=== PATIENT | female | born 1980 | race Caucasian/White ===

== ENCOUNTER → 2020-02-13 | Outpatient (CLI) | payer OTHER | END | disposition home or self-care (01) | LOC: RAD 10:43 | PROVIDERS: ATTEND Nurse Practitioner Family | DX: R10.10 Upper abdominal pain, unspecified (principal) | CPT/HCPCS: 76700 ==

== ENCOUNTER → 2020-02-18 | Outpatient (CLI) | payer OTHER ==
[~2020-02-18] MED LIST: OMNIPAQUE 350 MG/ML, 100ML BOTTLE ONE
== END | disposition home or self-care (01) ==
LOC: CFH 12:02
PROVIDERS: ATTEND Nurse Practitioner Family
DX: K42.9 Umbilical hernia without obstruction or gangrene (principal); K43.9 Ventral hernia without obstruction or gangrene; J98.11 Atelectasis
CPT/HCPCS: 74160; Q9967

== ENCOUNTER → 2020-04-07 | Outpatient (CLI) | payer OTHER | END | disposition home or self-care (01) | LOC: STAR 08:09 | PROVIDERS: ATTEND Surgery | DX: Z20.828 Contact with and (suspected) exposure to other viral communicable diseases (principal) | CPT/HCPCS: 87635 ==

== ENCOUNTER 2020-04-13 06:27 | Day surgery (SDC) | payer OTHER ==
[~2020-04-13] VITALS: Ht 154.9 cm; Wt 83.1 kg
[2020-04-13] MEDS ORDERED: EPINEPHRINE 1 MG/ML, 1ML ONE (06:36)
[2020-04-13] MEDS ORDERED: BUPIVACAINE/PF 0.5% ONE (06:36)
[2020-04-13 07:13] VITALS: BP 119/79
[2020-04-13 07:27] LABS: HCG UR SG 1.019 (1.003-1.030)
[2020-04-13] MEDS ORDERED: CHLORHEXIDINE 15 ML UDC MM ONE (07:30)
[2020-04-13] MEDS ORDERED: LACTATED RINGERS 1,000 ML IV SCH (07:30)
[2020-04-13] MEDS ORDERED: HYDR-3240 PO (08:40)
[2020-04-13] MEDS ORDERED: FENTANYL PF 250 MCG/5ML ONE (08:41)
[2020-04-13] MEDS ORDERED: MIDAZOLAM 1 MG/ML, 2ML ONE (08:41)
[2020-04-13] MEDS ORDERED: NEOSTIGMINE 1 MG/ML, 10ML ONE (08:49)
[2020-04-13] MEDS ORDERED: LIDOCAINE 4%, 4 ML SYR/CANN TP ONE (08:49)
[2020-04-13] MEDS ORDERED: GLYCOPYRROLATE 0.2MG/1ML, 5ML ONE (08:49)
[2020-04-13] MEDS ORDERED: DEXAMETHASONE 4 MG/ML, 1ML ONE (08:49)
[2020-04-13] MEDS ORDERED: ROCURONIUM 10MG/ML,5ML ONE (08:49)
[2020-04-13] MEDS ORDERED: ONDANSETRON 2MG/ML, 2ML ONE (08:49)
[2020-04-13] MEDS ORDERED: KETOROLAC 30 MG/1 ML ONE (08:49)
[2020-04-13] MEDS ORDERED: CEFAZOLIN 1,000 MG ONE (08:49)
[2020-04-13] MEDS ORDERED: SUCCINYLCHOLINE 20 MG/ML, 10ML ONE (08:49)
[2020-04-13] MEDS ORDERED: LIDOCAINE-MPF 2% ,5ML ONE (08:49)
[2020-04-13] MEDS ORDERED: PROPOFOL 50 ML ONE (09:07)
[2020-04-13] MEDS ORDERED: METHOCARBAMOL 1,000 MG in DEXTROSE 5% 100 ML IV PRN (10:00)
[2020-04-13] MEDS ORDERED: OXYcodone 5 MG/5 ML ORAL.SOL UDC PO PRN (10:00)
[2020-04-13] MEDS ORDERED: ACETAMINOPHEN 325 MG TABLET PO PRN (10:00)
[2020-04-13] MEDS ORDERED: ONDANSETRON 2MG/ML, 2ML IVPush PRN (10:00)
[2020-04-13] MEDS ORDERED: MIDAZOLAM 1 MG/ML, 2ML IV PRN (10:00)
[2020-04-13] MEDS ORDERED: PROMETHAZINE 25 MG/ML, 1ML IVPush PRN (10:00)
[2020-04-13] MEDS ORDERED: LABETALOL 5MG/ML, 20ML IV PRN (10:00)
[2020-04-13] MEDS ORDERED: HYDROmorphone 1 MG/ML, 1ML INJ IVPush PRN (10:00)
[2020-04-13] MEDS ORDERED: MEPERIDINE/PF 25MG/0.5ML IVPush PRN (10:00)
[2020-04-13] MEDS ORDERED: hydrALAzine 20 MG/ML, 1ML IV PRN (10:00)
[2020-04-13] MEDS ORDERED: FENTANYL PF 100 MCG/2ML IV PRN (10:00)
[2020-04-13] MEDS ORDERED: EPHEDRINE 50 MG/ML, 1ML IVPush PRN (10:00)
== END 2020-04-13 11:30 | disposition home or self-care (01) ==
LOC: OUT 06:27
PROVIDERS: ATTEND Surgery
DX: K43.2 Incisional hernia without obstruction or gangrene (principal); Z72.89 Other problems related to lifestyle; Z79.899 Other long term (current) drug therapy; Z82.5 Family history of asthma and other chronic lower respiratory diseases
CPT/HCPCS: 49560; 49568; 81025; C1781; J0171; J0330; J0690; J1100; J1885; J2250; J2405; J2704; J2710; J3010; J7120

== ENCOUNTER 2020-09-14 08:26 | Emergency (ER) | payer OTHER ==
[~2020-09-14] VITALS: Ht 154.9 cm; Wt 80.2 kg
[~2020-09-14 08:26] MED LIST changes: +HYDR-2214 PO; -OMNIPAQUE 350 MG/ML, 100ML BOTTLE ONE
--- NOTE | 2020-09-14 09:07 | NUR ---
provider at bedside to do evaluation.
--- NOTE | 2020-09-14 09:08 | NUR ---
PT STATE WOKE UP THIS AM WITH PAIN IN BILATERAL ANKLES AND KNEES AND LOWER BACK LIKE SHE IS ABOUT TO START A PERIOD. STATES FEELS LIKE SHE HAS COTTON MOUTH. PT STATES DOESN'T FEEL WELL, WITH FATIGUE AND PRESSURE IN THE SLIGHT NAUSEA NO VOMMITING
--- NOTE | 2020-09-14 09:21 | NUR ---
PT IS CONCERNED OF CALCIUM LEVELS. PT TYPICALLY TEST POSITIVE FOR TB BECAUSE HAD BCG IN [facility].
[2020-09-14] MEDS ORDERED: IBUPROFEN 600 MG TABLET ONE (09:25)
[2020-09-14] MEDS ORDERED: IBUPROFEN 600 MG TABLET PO ONE (09:30)
[2020-09-14 09:56] LABS: RAPID INFLUENZA A Negative (Negative); RAPID INFLUENZA B Negative (Negative)
[2020-09-14 10:02] LABS: ALANINE AMINOTRANSFERASE 17 U/L (12-78); ALBUMIN 3.6 g/dL (3.4-5.0); ANION GAP 6 mmol/L (5-15); CALCIUM 8.6 mg/dL (8.5-10.1); CHLORIDE 107 mmol/L (98-107); CREATININE 0.76 mg/dL (0.55-1.02)
[2020-09-14 10:04] LABS: ALKALINE PHOSPHATASE 70 U/L (45-117); BILIRUBIN,TOTAL 0.5 mg/dL (0.2-1.0); TOTAL PROTEIN 7.7 g/dL (6.4-8.2)
[2020-09-14 11:00] VITALS: BP 105/57
--- NOTE | 2020-09-14 11:01 | NUR ---
PT STATES AFTER BEING MEDICATED PRESSURE IN HEAD IS GONE. PAIN OR SORENESS IS SLIGHTLY BETTER IN THE ANKLES AND KNEES.
[2020-09-14 11:56] LABS: MICROSCOPIC NOT IND
== END 2020-09-14 12:14 | disposition home or self-care (01) ==
LOC: ED 09:01
DX: B34.9 Viral infection, unspecified (principal); Z20.822 Contact with and (suspected) exposure to COVID-19
CPT/HCPCS: 36415; 80053; 81003; 87400; 99283; U0003; U0005